=== PATIENT | female | born 1985 | race Caucasian/White ===

== ENCOUNTER → 2018-05-21 | Outpatient (CLI) | payer OTHER | END | disposition home or self-care (01) | LOC: CT 00:43 | PROC: BW21ZZZ Computerized Tomography (CT Scan) of Abdomen and Pelvis (ICD-10-PCS; principal; 2018-05-21) | DX: R10.9 Unspecified abdominal pain (principal); K62.5 Hemorrhage of anus and rectum; E66.3 Overweight ==